=== PATIENT | male | born 1970 | race Caucasian/White ===

== ENCOUNTER 2023-02-28 14:47 | Inpatient (IN) | payer BC ==
[2023-02-28] MEDS ORDERED: IV FLUID CONTINUATION 1,000 ML IV ONE (15:11)
[2023-02-28] MEDS ORDERED: MORPHINE SULFATE 4 MG/ML SYRINGE IV PRN (15:16)
[2023-02-28] MEDS ORDERED: NALOXONE 0.4 MG/ML 1 ML VIAL IV PRN (15:16)
[2023-02-28 15:17] LABS: Partial Thromboplastin Time 24.2 sec (22.0-30.0); Prothrombin Time 10.5 sec (9.0-12.0)
[2023-02-28] MEDS ORDERED: HEPARIN SODIUM 1,000 UN/ML (10ML VL) ONE (15:18)
[2023-02-28] MEDS ORDERED: fentaNYL (PF) 50 MCG/ML 2 ML AMP ONE (15:18)
--- NOTE | 2023-02-28 15:21 | ED ---
General Adult HPI - General Chief complaint: Chest Pain Stated complaint: Chest Pain Time Seen by Provider: 02/28/23 14:53 Source: patient, RN notes reviewed, old records reviewed Mode of arrival: ambulatory Limitations: no limitations - History of Present Illness Initial comments: 52-year-old male presents with central chest pain. Pain was described initially as sharp followed by a pressure sensation. Patient has no prior history of CAD. He states he had mid back pain which began yesterday and was also sharp in nature. Patient was hypotensive by paramedics. He was given aspirin and nitroglycerin during transport with significant improvement in his symptoms. He had a anterior OH during transport on EKG but was not able to transmit the EKG secondary to the Internet being down. Patient is feeling better with continued chest pressure upon arrival. He has history of hypertension and is a prediabetic. He is a nonsmoker. - Related Data Allergies Allergy/AdvReac Type Severity Reaction Status Date / Time bupropion [From Wellbutrin] Allergy Unknown Verified 02/28/23 14:54 Review of Systems ROS Statement: Those systems with pertinent positive or pertinent negative responses have been documented in the HPI. ROS Other: All systems not noted in ROS Statement are negative. Past Medical History Past Medical History: Hypertension History of Any Multi-Drug Resistant Organisms: None Reported Past Surgical History: No Surgical Hx Reported Past Psychological History: No Psychological Hx Reported Smoking Status: Current every day smoker Past Alcohol Use History: None Reported Past Drug Use History: None Reported General Exam Limitations: no limitations General appearance: alert, in no apparent distress Head exam: Present: atraumatic, normocephalic Eye exam: Present: normal appearance, PERRL ENT exam: Present: normal exam Neck exam: Present: normal inspection. Absent: tenderness, meningismus Respiratory exam: Present: normal lung sounds bilaterally. Absent: respiratory distress, wheezes Cardiovascular Exam: Present: regular rate, normal rhythm GI/Abdominal exam: Present: soft. Absent: distended, tenderness Extremities exam: Present: normal inspection, other (2+ left radial pulse, 2+ bilateral pedal pulses) Neurological exam: Present: alert Psychiatric exam: Present: anxious Skin exam: Present: warm, diaphoretic Course Vital Signs 02/28/23 02/28/23 02/28/23 14:49 14:55 14:58 Temperature 98.1 F Pulse Rate 64 60 Respiratory 20 18 63 H Rate Blood Pressure 164/115 166/114 O2 Sat by Pulse 100 100 98 Oximetry - Reevaluation(s) Reevaluation #1: 02/28/23 15:08 Due to the fact that the patient was hypertensive with sharp chest pain and back pain he was taken immediately to CT angiography for aorta study prior to transport immediately to the Electromedical Equipment [facility]. This was decided with the discussion between myself and Dr. Herrera. She was taken from the computed tomography scan to the Electromedical Equipment Repairer. Medical Decision Making - Medical Decision Making Was pt. sent in by a medical professional or institution (, PA, TAPING SUPERVISOR, urgent care, hospital, or residential...) When possible be specific @ -No Did you speak to anyone other than the patient for history (EMS, parent, family, police, friend...)? What history was obtained from this source @ -No Did you review nursing and triage notes (agree or disagree)? Why? @ -I reviewed and agree with nursing and triage notes Were old charts reviewed (outside hosp., previous admission, EMS record, old EKG, old radiological studies, urgent care reports/EKG's, residential records)? Report findings @ -No old charts were reviewed Differential Diagnosis (chest pain, altered mental status, abdominal pain women, abdominal pain men, vaginal bleeding, weakness, fever, dyspnea, syncope, headache, dizziness, GI bleed, back pain, seizure, CVA, palpatations, mental health, musculoskeletal)? @ -not applicable EKG interpreted by me (3pts min.). @EKG shows sinus rhythm with elevation in V2 and V3 with reciprocal change in the inferior leads consistent with acute OH, rate of 63, KY interval 146, QRS duration 98, QTC 4:15. X-rays interpreted by me (1pt min.). @ -None done CT interpreted by me (1pt min.). @ -CT angiography was performed, I do not see and aortic dissection. Currently awaiting the radiologist's read U/S interpreted by me (1pt. min.). @ -None done What testing was considered but not performed or refused? (CT, X-rays, U/S, labs)? Why? @ -None What meds were considered but not given or refused? Why? @ -None Did you discuss the management of the patient with other professionals (professionals i.e. , PA, TAPING SUPERVISOR, lab, RT, psych nurse, social work supervisor, school services officer, teacher, community services officer, case therapist)? Give summary @ -[EMH Was smoking cessation discussed for >3mins.? @ -No Was critical care preformed (if so, how long)? @ -No Were there social determinants of health that impacted care today? How? (Homelessness, low income, unemployed, alcoholism, drug addiction, transportation, low edu. Level, literacy, decrease access to med. care, halfway, rehab)? @ -No Was there de-escalation of care discussed even if they declined (Discuss DNR or withdrawal of care, Hospice)? DNR status @ -No What co-morbidities impacted this encounter? (DM, HTN, Smoking, COPD, CAD, Cancer, CVA, ARF, Chemo, Hep., AIDS, mental health diagnosis, sleep apnea, morbid obesity)? @Hypertension Was patient admitted / discharged? Hospital course, mention meds given and route, prescriptions, significant lab abnormalities, going to OR and other pertinent info. @52 yo male presenting with chest pain. Patient has associated hypertension and stabbing back pain and there was concern for aortic pathology. He was taken first to the computed tomography scan for aorta study. I reviewed this myself and did not see any dissection or aneurysmal change. Patient was then taken to the Electromedical Equipment Repairer. All laboratory studies pending. He had been given aspirin and nitroglycerin prehospital. Case discussed with the admitting physician and with the bead maker Dr. Herrera. Undiagnosed new problem with uncertain prognosis? @ -No Drug Therapy requiring intensive monitoring for toxicity (Heparin, Nitro, Insulin, Cardizem)? @ -No Were any procedures done? @ -No Diagnosis/symptom? @ -Acute OH, ST segment elevated OH Acute, or Chronic, or Acute on Chronic? @ -Acute Uncomplicated (without systemic symptoms) or Complicated (systemic symptoms)? @Complicated Side effects of treatment? @ -No Exacerbation, Progression, or Severe Exacerbation? @ -No Poses a threat to life or bodily function? How? (Chest pain, USA, OH, pneumonia, PE, COPD, DKA, ARF, appy, cholecystitis, CVA, Diverticulitis, Homicidal, Carreon icidal, threat to staff... and all critical care pts) @ -Yes, arrhythmia, cardiogenic shock - Lab Data Result diagrams: 02/28/23 14:57 Lab Results 02/28/23 02/28/23 Range/Units 14:57 14:57 PT 10.5 (9.0-12.0) sec INR 1.0 (<1.2) APTT 24.2 (22.0-30.0) sec Sodium 139 (137-145) mmol/L Potassium 4.0 (3.5-5.1) mmol/L Chloride 109 H (98-107) mmol/L Carbon Dioxide 21 L (22-30) mmol/L Anion Gap 9 mmol/L BUN 24 H (9-20) mg/dL Creatinine 0.93 (0.66-1.25) mg/dL Est GFR (CKD-EPI)AfAm >90 (>60 ml/min/1.73 sqM) Est GFR (CKD-EPI)NonAf >90 (>60 ml/min/1.73 sqM) Glucose 130 H (74-99) mg/dL Calcium 9.1 (8.4-10.2) mg/dL Magnesium 1.9 (1.6-2.3) mg/dL Total Bilirubin 0.5 (0.2-1.3) mg/dL AST 26 (17-59) U/L ALT 20 (4-49) U/L Alkaline Phosphatase 95 (38-126) U/L Total Protein 7.0 (6.3-8.2) g/dL Albumin 4.0 (3.5-5.0) g/dL Disposition Clinical Impression: ST elevation myocardial infarction (STEMI) Disposition: ADMITTED IP TO THIS HOSP Condition: Serious Is patient prescribed a controlled substance at d/c from ED?: No Time of Disposition: 15:10
[2023-02-28] MEDS: HEPARIN SODIUM 1,000 UN/ML (10ML VL) IVP ONE ×2 (15:27→15:42)
[2023-02-28] MEDS ORDERED: MIDAZOLAM 2 MG/2 ML VIAL IVP ONE (15:27)
[2023-02-28] MEDS ORDERED: LIDOCAINE 1% INJ 10MG/ML (20 ML MDV) SQ ONE (15:28)
[2023-02-28 15:29] LABS: ALT 20 U/L (4-49); AST 26 U/L (17-59); African American GFR (CKD) >90 (>60 ml/min/1.73 sqM); Alkaline Phosphatase 95 U/L (38-126); Anion Gap 9 mmol/L; Blood Urea Nitrogen 24 mg/dL (9-20); Calcium 9.1 mg/dL (8.4-10.2); Carbon Dioxide 21 mmol/L (22-30); Chloride 109 mmol/L (98-107); Glucose 130 mg/dL (74-99); Magnesium 1.9 mg/dL (1.6-2.3); Non-African American GFR(CKD) >90 (>60 ml/min/1.73 sqM); Sodium 139 mmol/L (137-145); Total Bilirubin 0.5 mg/dL (0.2-1.3)
--- NOTE | 2023-02-28 15:29 | CT ---
EXAMINATION TYPE: CT angio thor/abd pel aorta CT DLP: 1080.8 mGycm, Automated exposure control for dose reduction was used. DATE OF EXAM: 02/28/2023 3:16 PM COMPARISON: None. CLINICAL INDICATION:Male, 52 years old with history of CP/BP/HTN; PHH, chest pain TECHNIQUE: Dissection protocol: Multiple axial CT images of the chest, abdomen, and pelvis were obtai maria dolores after the administration of IV contrast. 3-D reformats and maximum intensity projection format we re performed on a separate workstation. Then the abdomen was scanned after administration of 100 cc o f Isovue 370 IV contrast. 3-D reformats of the aorta were performed on a separate workstation. FINDINGS: ARTERIAL VASCULATURE: The thoracic aorta is normal in course. Ascending thoracic aortic aneurysm mariaelena uring up to 4.2 cm. There is no evidence of aortic dissection, aneurysm or acute aortic injury. Great arch vessels patent and normal in course and caliber. No abdominal aortic aneurysm. No evidence for dissection. The celiac axis, SMA, single bilateral renal arteries, and ARACELI are widely patent. PULMONARY ARTERIAL VASCULATURE: Normal caliber. No evidence of filling defect to suggest pulmonary em bolus. VENOUS SYSTEM: Unremarkable. Lungs/pleura: The lung parenchyma appears unremarkable. Heart: Within normal limits. Pericardial effusion. Mild coronary artery calcifications within the LAD and circumflex coronary arteries. Mediastinum: No gross evidence of adenopathy. Lower Neck: No significant findings. Abdomen: Liver: Unremarkable. Gallbladder and Bile ducts: Unremarkable. Pancreas: Unremarkable. Spleen: Unremarkable. Adrenal glands: Unremarkable. Kidneys and Ureters: Unremarkable. No hydronephrosis. Stomach and Bowel: Unremarkable. The appendix is within normal limits. No evidence of bowel obstruct ion. Peritoneum: No evidence of pneumoperitoneum, free fluid, or adenopathy. Bladder: Unremarkable. Reproductive: Unremarkable. Abdominal wall/soft tissues: Small fat filled umbilical hernia.. Musculoskeletal: The osseous structures appear intact. IMPRESSION: 1. No evidence for aortic dissection. 2. Ascending thoracic aortic aneurysm measuring up to 4.2 cm.
[2023-02-28 15:48] LABS: HCT 41.4 % (39.0-53.0); MCH 31.5 pg (25.0-35.0); MCHC 33.8 g/dL (31.0-37.0); MCV 93.1 fL (80.0-100.0); Mean Platelet Volume 7.3; Platelet Count 319 k/uL (150-450); RBC 4.44 m/uL (4.30-5.90); RDW 12.8 % (11.5-15.5); WBC 8.7 k/uL (3.8-10.6)
[2023-02-28] MEDS ORDERED: TICAGRELOR 90 MG TAB ONE (15:52)
[2023-02-28] MEDS ORDERED: TICAGRELOR 90 MG TAB PO ONE (16:00)
[2023-02-28] MEDS ORDERED: NITROGLYCERIN 1000MCG/10ML SYRINGE INTRACORON ONE (16:11)
[2023-02-28] MEDS ORDERED: IOPAMIDOL-370 100ML BTL INJ ONE ×3 (16:11→16:58)
[2023-02-28] MEDS ORDERED: HYDROmorphone 0.5 MG/0.5 ML SYRINGE IVP ONE (16:16)
[2023-02-28] MEDS ORDERED: TEMAZEPAM 15 MG CAP PO PRN (16:43)
[2023-02-28] MEDS ORDERED: SODIUM CHLORIDE 0.9% 1,000 ML IV SCH (16:45)
[2023-02-28 17:04] LABS: Glucose,Whole Blood 97 mg/dL (70-110)
[2023-02-28] MEDS ORDERED: MAG HYDROX/AL HYDROX/SIMETH 30 ML CUP PO PRN (17:14)
[2023-02-28] MEDS ORDERED: NITROGLYCERIN SL TABS 0.4 MG TAB SUBLINGUAL PRN (17:14)
[2023-02-28] MEDS ORDERED: RX INFO: IV CONTRAST WAS GIVEN 1 EACH MISC MISCELLANE PRN (17:14)
[2023-02-28] MEDS ORDERED: ATROPINE SULFATE 0.1 MG/ML 10ML SYRINGE IV PRN (17:14)
[2023-02-28] MEDS ORDERED: ZOLPIDEM 5 MG TAB PO PRN (17:14)
[2023-02-28 17:54] LABS: Basophils # (M) 0.09 k/uL (0-0.2); Eosinophils # (M) 0.09 k/uL (0-0.7); Lymphocytes # (M) 2.96 k/uL (1.0-4.8); Metamyelocytes # (M) 0.09 k/uL (0); Metamyelocytes % 1 %; Monocytes # (M) 0.61 k/uL (0-1.0); Neutrophils # (M) 4.96 k/uL (1.3-7.7); Neutrophils % (M) 57 %; Nucleated Red Blood Cells 0 /100 WBC (0-0); Total Cells Counted 200
[2023-02-28] MEDS: METOPROLOL TARTRATE 25 MG TAB PO SCH (18:03)
[2023-02-28] MEDS: ATORVASTATIN 80 MG TAB PO SCH (18:04)
[2023-02-28 19:49] LABS: T4, Free (Free Thyroxine) 1.66 ng/dL (0.78-2.19)
[2023-02-28] MEDS: LOSARTAN 50 MG TAB PO SCH (20:19)
[2023-02-28] MEDS ORDERED: DEXTROSE 50% SYRINGE 50 ML IVP PRN ×2 (22:44)
[2023-02-28 23:41] LABS: Glucose,Whole Blood 101 mg/dL (70-110)
--- NOTE | 2023-02-28 23:46 | CONS ---
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 today. He had mild back discomfort in the upper mid scapular area yesterday and also mild chest discomfort, which he did not think too much about, but this afternoon, the pain was more constant. After arrival, he was found to have a very subtle anterior ST elevation and also had quite a bit of elevated blood pressure and therefore, I recommended a CT angio prior to any coronary intervention and this CT angio did not reveal any evidence of dissection, but there was an ascending aortic dilatation of 4.2 cm. He was advised a prompt cardiac catheterization and I saw him in the cardiac lab support technician. He was having very mild chest discomfort and EKG changes had improved when I started the procedure. PAST MEDICAL HISTORY: 1. Family history of premature CAD. 2. Hypertension. 3. Hypothyroidism. 4. Borderline hyperlipidemia. 5. No evidence of any diabetes, myocardial infarction, CVA. SOCIAL HISTORY: The patient is not a smoker. MEDICATIONS: Medications at home include; 1. Ozempic 0.5 subcu once a week. 2. Losartan 100 mg daily. 3. Synthroid 224 mcg daily. 4. He takes Nexium. ALLERGIES: Wellbutrin. PHYSICAL EXAMINATION: VITAL SIGNS: Blood pressure is 140/70, pulse rate is about 92, sinus. HEENT: Unremarkable. Fundus was not examined by me. NECK: Supple. No JVD. No carotid bruit. HEART: Reveals S1, S2 heard normally. No significant murmurs. LUNGS: Clear. ABDOMEN: Soft, nontender. EXTREMITIES: Lower extremities reveal normal pulses. No edema. CENTRAL NERVOUS SYSTEM: Normal. IMAGING STUDIES: EKG revealed sinus mechanism with a precordial ST elevation in leads V1 and V2 with some reciprocal inferior ST depression suggestive of anterior ST-elevation OR. IMPRESSION: 1. Anterior ST-elevation myocardial infarction. 2. Hypertension. 3. Family history of coronary artery disease. 4. Hypothyroidism, on replacement therapy. RECOMMENDATIONS: Prompt cardiac cath and PCI advised and I proceeded to perform the procedure expeditiously. MMODL / IJN: [id number] /
[2023-03-01 05:45] LABS: HCT 38.1 % (39.0-53.0); HGB 12.4 gm/dL (13.0-17.5); MCH 30.8 pg (25.0-35.0); MCHC 32.6 g/dL (31.0-37.0); MCV 94.4 fL (80.0-100.0); Mean Platelet Volume 7.3; Platelet Count 267 k/uL (150-450); RBC 4.03 m/uL (4.30-5.90); RDW 12.8 % (11.5-15.5); WBC 8.2 k/uL (3.8-10.6)
[2023-03-01 05:50] LABS: Magnesium 2.1 mg/dL (1.6-2.3); Phosphorus 3.7 mg/dL (2.5-4.5)
[2023-03-01 05:51] LABS: ALT 23 U/L (4-49); AST 34 U/L (17-59); African American GFR (CKD) >90 (>60 ml/min/1.73 sqM); Albumin 3.3 g/dL (3.5-5.0); Alkaline Phosphatase 74 U/L (38-126); Anion Gap 7 mmol/L; Blood Urea Nitrogen 18 mg/dL (9-20); Calcium 8.7 mg/dL (8.4-10.2); Carbon Dioxide 22 mmol/L (22-30); Chloride 108 mmol/L (98-107); Glucose 85 mg/dL (74-99); Non-African American GFR(CKD) >90 (>60 ml/min/1.73 sqM); Potassium 4.2 mmol/L (3.5-5.1); Sodium 137 mmol/L (137-145); Total Bilirubin 0.6 mg/dL (0.2-1.3); Total Protein 6.2 g/dL (6.3-8.2)
--- NOTE | 2023-03-01 06:02 | CC ---
CARDIAC CATHETERIZATION REPORT PROCEDURES PERFORMED: 1. Left heart catheterization and coronary angiography. 2. Percutaneous transluminal coronary angioplasty and stenting of mid left anterior descending with a drug-eluting stent culprit vessel performed in the setting of an acute anterior ST-elevation myocardial infarction. 3. Percutaneous transluminal coronary angioplasty and stenting of mid circumflex nondominant vessel with a drug-eluting stent. PERFORMED BY: Dr. Ty Herrera. ANESTHESIA: Moderate conscious sedation time was 53 minutes. The patient was administered Versed. Oxygen saturation, hemodynamics, and EKG were monitored closely. Reperfusion of LAD was achieved in 60 minutes after arrival to the emergency room. The patient was administered heparin of about 7500 units and his ACT was 279. He also received aspirin and Brilinta 180 mg during the procedure and he was advised to be on aspirin and Brilinta combination of 81 mg and 90 mg b.i.d. uninterrupted for 1 year. CLINICAL INFORMATION: Mr. Yefri Barron is a 52-year-old gentleman presented to the hospital with chest pain and anterior ST elevation in leads V1 to V3. Advised prompt cardiac catheterization. He has history of hypertension, family history of CAD and also hypothyroidism. He has borderline hyperlipidemia. PROCEDURE NOTE: Under local anesthesia and strict aseptic precautions, a 6-Mohawk introducer was placed in the right radial artery. I started off with a left 3.5 Lydia guide catheter and did coronary angiography of the left system and also performed the stenting of mid LAD and mid circumflex. I then checked LV pressures and did a right coronary angiogram with a standard right Lydia catheter and noted that he had a significant lesion in the RCA, which would be staged. After the procedure, the sheath was taken out and TR band applied as per protocol and the patient sent to the room in a stable condition with saturation of fingers of the right hand of about 98%. CARDIAC CATHETERIZATION FINDINGS: 1. Left main coronary artery: There is no significant disease. Mild ostial narrowing, but no significant disease. Bifurcates into LAD and circumflex. 2. Left anterior descending coronary artery: Fair caliber vessel extends along the anterior wall. There is a mid lesion after a septal and diagonal branch and the lesion is about 90% to 95% with haziness eccentric suggestive of some thrombus. Beyond the lesion, the caliber improves, gives off another diagonal and several septal branches, runs all the way to the apex and curves over the apex to supply the inferoapical portion. The mid LAD therefore is a culprit lesion with haziness suggestive of thrombus and 95% stenosis. 3. Left posterior circumflex coronary artery: Nondominant vessel, gives off 2 small obtuse marginals and a groove branch that is diffusely diseased. After the groove branch, the circumflex continues and gives off another obtuse marginal and at this origin of the obtuse marginal, there is an 80% eccentric calcified stenosis and then the caliber improves, and distally it trifurcates into 3 small branches. The circumflex is nondominant, moderate caliber and distribution, mid lesion of 80% to 85% with calcification. 4. Right coronary artery: This coronary angiogram was performed at the end of the procedure and this is a dominant vessel, has a mid lesion of about 95% and distally there is some diffuse disease, but bifurcates into PDA and PLV, both of which have a 30% to 40% narrowing, but the mid lesion is significant and seems to be a chronic lesion with some calcification and is about 90%. 5. Left ventriculogram was not performed. FINAL IMPRESSION: This patient has a right-dominant system with a 90% mid RCA lesion and mild diffuse disease beyond it and then the distal branches. Normal filling pressures of about 14 mmHg without any gradient. Left main has mild ostial narrowing. No significant disease. LAD has a 95% mid lesion and circumflex has 85% mid lesion. LV-gram was not performed. RECOMMENDATIONS: I performed PCI of LAD and circumflex and will stage RCA. PCI PROCEDURE DETAILS: I used a 3.5 left 6-Mohawk Lydia guide catheter to cannulate left coronary artery. The aortic arch was very tortuous. A run-through wire was used to cross the lesion. A 2.5 caliber 12 mm Trek balloon was used to pre-dilate the mid lesion. I deployed a 3.5 caliber 15 mm long Xience stent with excellent angiographic result. I then turned my attention to the circumflex. Same wire was advanced into the circumflex and a 2.5 caliber 8 mm NC Trek balloon was used to pre-dilate the mid circumflex lesion, which was calcified. I then deployed a 3.5 caliber 12 mm Xience stent. Excellent angiographic result was achieved. The patient had chest pain and mild EKG changes with the LAD dilatation, but not so many EKG changes, but he had a lot of chest pain with circumflex lesion. Excellent angiographic result was achieved. The patient's ACT was 279. The sheath was taken out, and Angio-Seal device used to secure hemostasis. Results were discussed with the patient and I also spoke to his . Plan is to probably stage the mid RCA lesion in the next 2 weeks if he remains stable. The patient was sent to the ICU in a stable condition. He will be on aspirin and Brilinta combination without interruption for 1 year. MMODL / IJN: [id number] /
[2023-03-01 06:20] LABS: Glucose,Whole Blood 84 mg/dL (70-110)
[2023-03-01] MEDS: LEVOTHYROXINE 100 MCG TAB PO SCH (06:39)
[2023-03-01] MEDS: METOPROLOL TARTRATE 25 MG TAB PO SCH ×2 (06:50→17:40)
[2023-03-01] MEDS: INSULIN ASPART (NovoLOG) 100 UNIT/ML VIAL SQ SCH ×4 (07:12→20:34)
[2023-03-01 08:52] VITALS: BMI 33.7
[2023-03-01] MEDS ORDERED: NON FORMULARY DRUG (Finasteride [Finasteride] 1 MG Tablet) PO SCH (09:00)
[2023-03-01 09:24] LABS: Chol/HDL Ratio 4.67 Ratio; LDL Cholesterol,Calculated 94.1 mg/dL (0.0-131.0)
[2023-03-01] MEDS: TICAGRELOR 90 MG TAB PO SCH ×2 (09:55→20:40)
[2023-03-01] MEDS: ATORVASTATIN 80 MG TAB PO SCH (09:55)
[2023-03-01] MEDS: ASPIRIN 81 MG PO SCH (09:55)
[2023-03-01] MEDS: PARoxetine 20 MG TAB PO SCH (10:45)
[2023-03-01 11:37] LABS: Glucose,Whole Blood 97 mg/dL (70-110)
--- NOTE | 2023-03-01 11:59 | P.HPIM ---
History of Present Illness H&P Date: 02/28/23 Chief Complaint: Chest pain Patient is a 52-year-old male with a known history of hypertension, hypothyroidism, anxiety and BPH presents to ER with the complaints of chest kendra n. Patient states that he was at work at that time. Started having chest pain with pressure like sensation along with shortness of breath, dizziness and palpitations. Associated with nausea . Patient's colleagues called EMS and was brought to the hospital. Patient states that he did have mid back pain yesterday which was sharp in nature. Patient was hypotensive while en route to the hospital. He was given aspirin and nitroglycerin with significant improvement in symptoms. EKG Showed was noted to have anterior wall NM, STEMI team was activated. Patient states that he was having exertional dyspnea for the past couple weeks. Laboratory data showed sodium 139 potassium 4.0 chloride 109 bicarb is 21 BUN 24 and creatinine 0.93 and blood sugar 130. Troponin 0.029, TSH 5.6 and free T4 [address] thorax showed no evidence for aortic dissection. Ascending thoracic aortic aneurysm measuring up to 4.2 cm. Patient underwent cardiac catheterization and is status post stenting of mid LAD and mid circumflex with a drug-eluting stent. Planning for staged mid RCA PTCA in the next 2 weeks. Review of Systems Constitutional: Patient denies any fever or chills . No generalized weakness or weight loss. Abdomen: Patient denied nausea vomiting and diarrhea and abdominal pain. Cardiovascular: Patient currently denied chest pain or short of breath no palpitations. No leg swelling. Respiratory: patient denied any cough is from production. No shortness of breath Neurologic: Patient denied any numbness or tingling headache. Musculoskeletal: Patient denies any complaints of joint swelling or deformity. Skin: Negative Psychiatric: Negative Endocrine: No heat or cold intolerance. No recent weight gain. Genitourinary: No dysuria or hematuria. All other 14 point ROS negative except the above Past Medical History Past Medical History: Hypertension History of Any Multi-Drug Resistant Organisms: None Reported Past Surgical History: No Surgical Hx Reported Past Psychological History: No Psychological Hx Reported Smoking Status: Current every day smoker Past Alcohol Use History: None Reported Past Drug Use History: None Reported - Past Family History Father Family Medical History: Congestive Heart Failure (CHF) Medications and Allergies Home Medications Medication Instructions Recorded Confirmed Type Esomeprazole Magnesium [NexIUM] 40 mg PO DAILY PRN 02/28/23 02/28/23 History Finasteride 1 mg PO DAILY 02/28/23 02/28/23 History Levothyroxine Sodium [Synthroid] 224 mcg PO DAILY 02/28/23 02/28/23 History Losartan Potassium [Cozaar] 100 mg PO DAILY 02/28/23 02/28/23 History PARoxetine HCL [Paxil] 40 mg PO DAILY 02/28/23 02/28/23 History Semaglutide [Ozempic] 0.5 mg SQ [id number] 02/28/23 02/28/23 History Allergies Allergy/AdvReac Type Severity Reaction Status Date / Time bupropion [From Wellbutrin] Allergy Unknown Verified 02/28/23 15:49 Physical Exam Vitals: Vital Signs Temp Pulse Resp BP Pulse Ox 02/28/23 15:08 58 L 20 143/90 02/28/23 15:05 136/95 02/28/23 14:58 63 H 98 02/28/23 14:55 60 18 166/114 100 02/28/23 14:49 98.1 F 64 20 164/115 100 Intake and Output 02/28/23 02/28/23 02/28/23 06:59 14:59 22:59 Other: Weight 100.244 kg PHYSICAL EXAMINATION: Patient is lying in the bed comfortably, no acute distress, awake alert and oriented.. HEENT: Normocephalic. Neck is supple. Pupils reactive. Nostrils clear. Oral cavity is moist. Neck reveals no JVD, carotid bruits, or thyromegaly. CHEST EXAMINATION: Trachea is central. Symmetrical expansion. Lung collier clear to auscultation and percussion. CARDIAC: Normal S1, S2 with no gallops. No murmurs ABDOMEN: Soft. Bowel sounds normal. No organomegaly. No abdominal bruits. Extremities: reveal no edema. No clubbing or cyanosis Neurologically awake, alert, oriented x3 with well-coordinated movements. No focal deficits noted Skin: No rash or skin lesions. Psychiatric: Coperative. Nonsuicidal Musculoskeletal: No joint swelling or deformity. Normal range of motion. Results CBC & Chem 7: 03/01/23 05:17 03/01/23 05:17 Labs: Abnormal Lab Results - Last 24 Hours (Table) 02/28/23 Range/Units 14:57 Chloride 109 H (98-107) mmol/L Carbon Dioxide 21 L (22-30) mmol/L BUN 24 H (9-20) mg/dL Glucose 130 H (74-99) mg/dL Thrombosis Risk Factor Assmnt - DVT/VTE Prophylaxis DVT/VTE Prophylaxis: Pharmacologic Prophylaxis ordered Assessment and Plan Assessment: Acute anterior wall ST elevated NM. Status post stent placement to mid circumflex and mid LAD. Ascending thoracic aortic aneurysm measuring up to 4.2 cm Hypertension Prediabetes Hypothyroidism Anxiety/depression Family history of coronary disease in his uncles DVT prophylaxis with heparin subcu Plan: Patient is status post cardiac catheterization and stent placement. Continue with aspirin, Divya and statins. Patient was also started on metoprolol and losartan. Continue with levothyroxine. Patient is being monitored in the MICU. Cardiology is planning for a staged PTCA for the mid RCA lesion. Continue to follow closely. Cardiology is on board. Time with Patient: Greater than 30
--- NOTE | 2023-03-01 13:09 | CA ---
Transthoracic Echo Report Name: Yefri Barron Age: 52 Gender: M : 1970 Exam Date: 03/01/2023 07:49 Exam Location: [facility] Ht (in): 69 Wt (lb): 221 Ordering Physician: Annie Herrera MD ([id number]) Attending/Referring Phys: Entry Level Mechanical Engineer Maral Burgess RDCS Procedure CPT: Indications: anterior stemi Cardiac Hx: stents Technical Quality: Good Contrast 1: Total Dose (mL): Contrast 2: Total Dose (mL): MEASUREMENTS (Male / Female) Normal Values 2D ECHO LV Diastolic Diameter PLAX 4.4 cm 4.2 - 5.9 / 3.9 - 5.3 cm LV Systolic Diameter PLAX 2.8 cm IVS Diastolic Thickness 1.4 cm 0.6 - 1.0 / 0.6 - 0.9 cm LVPW Diastolic Thickness 1.5 cm 0.6 - 1.0 / 0.6 - 0.9 cm LV Relative Wall Thickness 0.6 RV Internal Dim ED PLAX 3.2 cm LA Systolic Diameter LX 3.6 cm 3.0 - 4.0 / 2.7 - 3.8 cm LV Diastolic Volume MOD 4C 130.9 cm??? LV Systolic Volume MOD 4C 68.6 cm??? LV Ejection Fraction MOD 4C 47.6 % LV Cardiac Index MOD 4C 1888.1 cm???/min???m??? LV Diastolic Length 4C 9.5 cm LV Systolic Length 4C 8.0 cm LV Diastolic Volume MOD 2C 100.1 cm??? LV Systolic Volume MOD 2C 42.1 cm??? LV Ejection Fraction MOD 2C 58.0 % LV Cardiac Index MOD 2C 1760.8 cm???/min???m??? LV Diastolic Length 2C 8.8 cm LV Systolic Length 2C 7.6 cm LA Volume 60.7 cm??? 18 - 58 / 22 - 52 cm??? M-MODE Aortic Root Diameter MM 3.4 cm MV E Point Septal Separation 0.8 cm AV Cusp Separation MM 2.2 cm DOPPLER AV Peak Velocity 143.5 cm/s AV Peak Gradient 8.2 mmHg MV Area PHT 4.2 cm??? Mitral E Point Velocity 94.2 cm/s Mitral A Point Velocity 95.7 cm/s Mitral E to A Ratio 1.0 MV Deceleration Time 181.1 ms MV E' Velocity 5.7 cm/s Mitral E to MV E' Ratio 16.5 TR Peak Velocity 244.5 cm/s TR Peak Gradient 23.9 mmHg Right Ventricular Systolic Press 28.9 mmHg FINDINGS Left Ventricle Left ventricular ejection fraction is estimated at 40-45 %. Left ventricular cavity size normal. Mildly increased septal wall thickness. Anteroapical, anteroseptal and anterolateral hypokinesis Right Ventricle Normal right ventricular size. Right ventricular systolic pressure within normal limits. Right Atrium Normal right atrial size. Left Atrium Mildly increased left atrial volume. Mildly increased left atrial area. Mitral Valve Structurally normal mitral valve. Mild mitral regurgitation. Aortic Valve Trileaflet aortic valve. No aortic valve stenosis or regurgitation. Tricuspid Valve Structurally normal tricuspid valve. Mild tricuspid regurgitation. Pulmonic Valve Structurally normal pulmonic valve. No pulmonic regurgitation. Pericardium No pericardial effusion. Aorta Normal size aortic root and proximal ascending aorta. CONCLUSIONS 1. Normal left ventricle size with mildly impaired left ventricle systolic function with segmental wall motion abnormality 2. Mild mitral and tricuspid regurgitation Previewed by: Dr. Diana Holland MD (Electronically Signed) Final Date: 01 March 2023 13:08
[2023-03-01 16:20] LABS: Glucose,Whole Blood 110 mg/dL (70-110)
[2023-03-01 20:20] LABS: Glucose,Whole Blood 97 mg/dL (70-110)
[2023-03-01] MEDS: LOSARTAN 50 MG TAB PO SCH (20:40)
--- NOTE | 2023-03-02 04:39 | PN ---
PROGRESS NOTE This is a gentleman who presented with acute anterior ST-elevation [place] and I performed stenting of mid LAD and also mid circumflex. He has a RCA lesion as well. His EKG today revealed sinus mechanism with poor R-wave progression. No acute changes. He is asymptomatic, doing well. Right radial site is clean and dry. Vital signs are stable. S1, S2 heard normally. Lungs are clear. Abdomen and lower extremities exam unchanged. Plan is to increase activity. Echocardiogram today and move him to telemetry tomorrow and possible discharge. I will perform intervention of mid circumflex in 2 weeks. If the patient has any symptoms while he is ambulating, I will consider intervention on this hospitalization, but I opened up the LAD and circumflex yesterday. Discussed my thoughts in detail with the patient, increased activity and moved to telemetry today. His troponins are only modestly elevated. Echo will be reviewed. WARD / IJN: [id number] /
[2023-03-02] MEDS: METOPROLOL TARTRATE 25 MG TAB PO SCH ×2 (05:41→17:15)
[2023-03-02] MEDS: LEVOTHYROXINE 100 MCG TAB PO SCH (05:41)
[2023-03-02 06:03] LABS: Basophils % (A) 1 %; Eosinophils # (A) 0.2 k/uL (0-0.7); Eosinophils % (A) 2 %; HCT 42.2 % (39.0-53.0); Lymphocytes % (A) 24 %; MCH 30.9 pg (25.0-35.0); MCHC 33.2 g/dL (31.0-37.0); Mean Platelet Volume 6.9; Monocytes # (A) 0.6 k/uL (0-1.0); Monocytes % (A) 8 %; Neutrophils # (A) 5.3 k/uL (1.3-7.7); Neutrophils % (A) 63 %; Platelet Count 305 k/uL (150-450); RBC 4.53 m/uL (4.30-5.90); RDW 12.7 % (11.5-15.5); WBC 8.4 k/uL (3.8-10.6)
[2023-03-02 06:12] LABS: African American GFR (CKD) >90 (>60 ml/min/1.73 sqM); Anion Gap 7 mmol/L; Blood Urea Nitrogen 15 mg/dL (9-20); Calcium 8.9 mg/dL (8.4-10.2); Carbon Dioxide 25 mmol/L (22-30); Chloride 106 mmol/L (98-107); Glucose 90 mg/dL (74-99); Non-African American GFR(CKD) >90 (>60 ml/min/1.73 sqM); Potassium 4.3 mmol/L (3.5-5.1); Sodium 138 mmol/L (137-145)
[2023-03-02 06:44] LABS: Glucose,Whole Blood 100 mg/dL (70-110)
[2023-03-02] MEDS: INSULIN ASPART (NovoLOG) 100 UNIT/ML VIAL SQ SCH ×4 (06:45→20:03)
[2023-03-02] MEDS ORDERED: LOSARTAN 50 MG TAB PO STA (08:00)
[2023-03-02] MEDS: ASPIRIN 81 MG PO SCH (08:06)
[2023-03-02] MEDS: PARoxetine 20 MG TAB PO SCH (08:06)
[2023-03-02] MEDS: TICAGRELOR 90 MG TAB PO SCH ×2 (08:06→20:05)
[2023-03-02] MEDS: ATORVASTATIN 80 MG TAB PO SCH (08:06)
[2023-03-02 11:11] LABS: Glucose,Whole Blood 108 mg/dL (70-110)
[2023-03-02 11:57] LABS: Glucose,Whole Blood 84 mg/dL (70-110)
--- NOTE | 2023-03-02 13:01 | PN ---
PROGRESS NOTE SUBJECTIVE: This is a 52-year-old gentleman, who presented in the afternoon on Tuesday, February 28 with an acute anterior WA. He underwent stenting of LAD and circumflex. He has an RCA lesion, which is stable, chronic, significant. He also has hypertension and hypothyroidism. He is doing well. No anginal symptoms. Cath site in the right radial is clean and dry with a good pulse. We will increase activity. I will increase the losartan to 100 mg daily, move him to telemetry with increased activity at discharge tomorrow and I will see him in the office in 10-12 days. OBJECTIVE: VITAL SIGNS: Stable. NECK: No JVD. HEART: S1, S2 heard normally. LUNGS: Clear. ABDOMEN: Unremarkable. LOWER EXTREMITIES: Unremarkable. MMODL / IJN: [id number] /
[2023-03-02 20:00] LABS: Glucose,Whole Blood 111 mg/dL (70-110)
[2023-03-02] MEDS ORDERED: LOSARTAN 50 MG TAB PO SCH (21:00)
[2023-03-03 06:09] LABS: Glucose,Whole Blood 94 mg/dL (70-110)
[2023-03-03] MEDS: INSULIN ASPART (NovoLOG) 100 UNIT/ML VIAL SQ SCH ×2 (06:10→12:08)
[2023-03-03] MEDS: LEVOTHYROXINE 100 MCG TAB PO SCH (06:12)
[2023-03-03] MEDS: METOPROLOL TARTRATE 25 MG TAB PO SCH (06:12)
[2023-03-03] MEDS: ASPIRIN 81 MG PO SCH (08:04)
[2023-03-03] MEDS: TICAGRELOR 90 MG TAB PO SCH (08:04)
[2023-03-03] MEDS: ATORVASTATIN 80 MG TAB PO SCH (08:04)
[2023-03-03] MEDS: PARoxetine 20 MG TAB PO SCH (08:04)
--- NOTE | 2023-03-03 09:16 | P.PN ---
Subjective Progress Note Date: 03/01/23 Patient is a 52-year-old male with a known history of hypertension, hypothyroidism, anxiety and BPH presents to ER with the complaints of chest pain. Patient states that he was at work at that time. Started having chest pain with pressure like sensation along with shortness of breath, dizziness and palpitations. Associated with nausea . Patient's colleagues called EMS and was brought to the hospital. Patient states that he did have mid back pain yesterday which was sharp in nature. Patient was hypotensive while en route to the hospital. He was given aspirin and nitroglycerin with significant improvement in symptoms. EKG Showed was noted to have anterior wall TN, STEMI team was activated. Patient states that he was having exertional dyspnea for the past couple weeks. Laboratory data showed sodium 139 potassium 4.0 chloride 109 bicarb is 21 BUN 24 and creatinine 0.93 and blood sugar 130. Troponin 0.029, TSH 5.6 and free T4 [address] thorax showed no evidence for aortic dissection. Ascending thoracic aortic aneurysm measuring up to 4.2 cm. Patient underwent cardiac catheterization and is status post stenting of mid LAD and mid circumflex with a drug-eluting stent. Planning for staged mid RCA PTCA in the next 2 weeks. 03/01/2023 Patient is currently sitting in the recliner chair. No complaints of chest pain. No commerce or shortness of breath. Blood pressure is slightly elevated. Pain is being continued on metoprolol and losartan. Also on dual at lipid agents. Cardiology is on board. Laboratory data showed WBC 8.2 hemoglobin 12.4 and platelets 267, sodium 137 potassium 4.2 chloride 100 bicarb is 22 BUN 18 and creatinine 0.76 Current medications reviewed. Objective - Vital Signs Vital signs: Vital Signs Temp 98.4 F 03/01/23 08:00 Pulse 77 03/01/23 11:00 Resp 12 03/01/23 11:00 BP 127/96 03/01/23 11:00 Pulse Ox 96 03/01/23 11:00 FiO2 Intake & Output 02/28/23 03/01/23 03/01/23 18:59 06:59 18:59 Intake Total 1250 1050 350 Output Total 625 950 550 Balance 625 100 -200 Weight 100.244 kg 103.8 kg 103.8 kg Intake: IV 850 Intake, IV Titration 150 900 0 Amount Sodium Chloride 0.9% 1, 150 900 0 000 ml @ 75 mls/hr IV . [id number] BRANDEN Rx#:[id number] Oral 250 150 350 Output: Urine 625 950 550 Other: # Voids 1 - Exam PHYSICAL EXAMINATION: Patient is lying in the bed comfortably, no acute distress, awake alert and oriented.. HEENT: Normocephalic. Neck is supple. Pupils reactive. Nostrils clear. Oral cavity is moist. Neck reveals no JVD, carotid bruits, or thyromegaly. CHEST EXAMINATION: Trachea is central. Symmetrical expansion. Lung collier clear to auscultation and percussion. CARDIAC: Normal S1, S2 with no gallops. No murmurs ABDOMEN: Soft. Bowel sounds normal. No organomegaly. No abdominal bruits. Extremities: reveal no edema. No clubbing or cyanosis Neurologically awake, alert, oriented x3 with well-coordinated movements. No focal deficits noted Skin: No rash or skin lesions. Psychiatric: Coperative. Nonsuicidal Musculoskeletal: No joint swelling or deformity. Normal range of motion. - Labs CBC & Chem 7: 03/02/23 05:22 03/02/23 05:22 Labs: Abnormal Lab Results - Last 24 Hours (Table) 02/28/23 02/28/23 02/28/23 Range/Units 14:57 14:57 14:57 RBC (4.30-5.90) m/uL Hgb (13.0-17.5) gm/dL Hct (39.0-53.0) % Metamyelocytes # (Man) 0.09 H (0) k/uL Chloride 109 H (98-107) mmol/L Carbon Dioxide 21 L (22-30) mmol/L BUN 24 H (9-20) mg/dL Glucose 130 H (74-99) mg/dL Troponin I (0.000-0.034) ng/mL Total Protein (6.3-8.2) g/dL Albumin (3.5-5.0) g/dL HDL Cholesterol (40.00-60.00) mg/dL TSH 5.600 H (0.465-4.680) mIU/L 03/01/23 03/01/23 03/01/23 Range/Units 05:17 05:17 05:17 RBC 4.03 L (4.30-5.90) m/uL Hgb 12.4 L (13.0-17.5) gm/dL Hct 38.1 L (39.0-53.0) % Metamyelocytes # (Man) (0) k/uL Chloride 108 H (98-107) mmol/L Carbon Dioxide (22-30) mmol/L BUN (9-20) mg/dL Glucose (74-99) mg/dL Troponin I (0.000-0.034) ng/mL Total Protein 6.2 L (6.3-8.2) g/dL Albumin 3.3 L (3.5-5.0) g/dL HDL Cholesterol 32.10 L (40.00-60.00) mg/dL TSH (0.465-4.680) mIU/L 03/01/23 Range/Units 05:17 RBC (4.30-5.90) m/uL Hgb (13.0-17.5) gm/dL Hct (39.0-53.0) % Metamyelocytes # (Man) (0) k/uL Chloride (98-107) mmol/L Carbon Dioxide (22-30) mmol/L BUN (9-20) mg/dL Glucose (74-99) mg/dL Troponin I 1.660 H* (0.000-0.034) ng/mL Total Protein (6.3-8.2) g/dL Albumin (3.5-5.0) g/dL HDL Cholesterol (40.00-60.00) mg/dL TSH (0.465-4.680) mIU/L Assessment and Plan Assessment: Acute anterior wall ST elevated TN. Status post stent placement to mid circumflex and mid LAD. Ascending thoracic aortic aneurysm measuring up to 4.2 cm Hypertension Prediabetes Hypothyroidism Anxiety/depression Family history of coronary disease in his uncles DVT prophylaxis with heparin subcu Plan: Patient is status post cardiac catheterization and stent placement. Continue with aspirin, Divya and statins. Continue with metoprolol and losartan. Continue with levothyroxine. Patient is being monitored in the MICU. Cardiology is planning for a staged PTCA for the mid RCA lesion in the next 2 weeks.. Continue to follow closely. Cardiology is on board.
--- NOTE | 2023-03-03 10:10 | P.PN ---
Subjective Progress Note Date: 03/02/23 Patient is a 52-year-old male with a known history of hypertension, hypothyroidism, anxiety and BPH presents to ER with the complaints of chest pain. Patient states that he was at work at that time. Started having chest pain with pressure like sensation along with shortness of breath, dizziness and palpitations. Associated with nausea . Patient's colleagues called EMS and was brought to the hospital. Patient states that he did have mid back pain yesterday which was sharp in nature. Patient was hypotensive while en route to the hospital. He was given aspirin and nitroglycerin with significant improvement in symptoms. EKG Showed was noted to have anterior wall MD, STEMI team was activated. Patient states that he was having exertional dyspnea for the past couple weeks. Laboratory data showed sodium 139 potassium 4.0 chloride 109 bicarb is 21 BUN 24 and creatinine 0.93 and blood sugar 130. Troponin 0.029, TSH 5.6 and free T4 [address] thorax showed no evidence for aortic dissection. Ascending thoracic aortic aneurysm measuring up to 4.2 cm. Patient underwent cardiac catheterization and is status post stenting of mid LAD and mid circumflex with a drug-eluting stent. Planning for staged mid RCA PTCA in the next 2 weeks. 03/01/2023 Patient is currently sitting in the recliner chair. No complaints of chest pain. No commerce or shortness of breath. Blood pressure is slightly elevated. Pain is being continued on metoprolol and losartan. Also on dual at lipid agents. Cardiology is on board. Laboratory data showed WBC 8.2 hemoglobin 12.4 and platelets 267, sodium 137 potassium 4.2 chloride 100 bicarb is 22 BUN 18 and creatinine 0.76 03/02/2023 Patient is currently sitting in a chair. Awake alert and oriented 3. Currently improvement. No complains of chest pain or shortness of breath. No nausea vomiting abdominal pain or diarrhea. Patient hasn't bled. 2-D echo cardiogram showed normal left ventricular size and mildly impaired left 20/systolic function with segmental wall motion abnormality. Mild mitral and tricuspid regurgitation. Losartan was increased 100 mg daily for better blood pressure control. Current medications reviewed. Objective - Vital Signs Vital signs: Vital Signs Temp 98.2 F 03/02/23 16:00 Pulse 96 03/02/23 19:00 Resp 21 03/02/23 19:00 BP 134/94 03/02/23 19:00 Pulse Ox 96 03/02/23 18:00 FiO2 Intake & Output 03/02/23 03/02/23 03/03/23 06:59 18:59 06:59 Intake Total 0 450 100 Output Total 0 Balance 0 450 100 Weight 100 kg Intake: Intake, IV Titration 0 Amount Sodium Chloride 0.9% 1, 0 000 ml @ 75 mls/hr IV . [id number] BRANDEN Rx#:[id number] Oral 0 450 100 Output: Urine 0 Other: # Voids 1 1 # Bowel Movements 1 - Labs CBC & Chem 7: 03/02/23 05:22 03/02/23 05:22 Labs: Abnormal Lab Results - Last 24 Hours (Table) 03/02/23 Range/Units 19:59 POC Glucose (mg/dL) 111 H (70-110) mg/dL Assessment and Plan Assessment: Acute anterior wall ST elevated MD. Status post stent placement to mid circumflex and mid LAD. Ascending thoracic aortic aneurysm measuring up to 4.2 cm Hypertension Prediabetes Hypothyroidism Anxiety/depression Family history of coronary disease in his uncles DVT prophylaxis with heparin subcu Plan: Patient is status post cardiac catheterization and stent placement. Continue with aspirin, Bellinta and statins. Continue with metoprolol and losartan. Losartan dose increased to 100 mg daily. Continue with levothyroxine. Continue with insulin sliding scale Patient is being monitored in the MICU. Cardiology is planning for a staged PTCA for the mid RCA lesion in the next 2 weeks.. Continue to follow closely. Cardiology is on board.
[2023-03-03 11:23] LABS: Glucose,Whole Blood 96 mg/dL (70-110)
[2023-03-03 15:44] VITALS: BP 140/92; PULSE 67; RESP 16; TEMP 97.9
--- NOTE | 2023-03-03 17:01 | P.PN ---
Subjective Progress Note Date: 03/03/23 Subjective: Patient is doing well from cardiovascular standpoint. He denies having any chest pain or chest pressure or shortness of breath. He is hemodynamically stable. His labs are within normal limits. Physical examination Cardiovascular: Regular rate and rhythm, no murmurs Respiratory: Good air entry in bilateral lung collier GI: Abdomen is soft and nontender, normal bowel sounds Extremities: No swelling in lower extremities Neurological: Alert and oriented to time place and person, no focal deficit Assessment Acute anterior wall ST elevated CA. Status post stent placement to mid circumflex and mid LAD. Ascending thoracic aortic aneurysm measuring up to 4.2 cm Hypertension Prediabetes Hypothyroidism Anxiety/depression Family history of coronary disease in his uncles Plan: His right radial access site has healed well. He has good pulses in all 4 extremities. His cardiac examination is within normal limits. Continue aspirin and Zantac. Continue other cardiac medications without any changes Patient is okay to discharge from cardiovascular standpoint without patient follow-up with Dr. Herrera. Patient needs further staged PCI for residue disease. Objective - Vital Signs Vital signs: Vital Signs Temp 97.9 F 03/03/23 12:00 Pulse 67 03/03/23 12:00 Resp 16 03/03/23 12:00 BP 140/92 03/03/23 12:00 Pulse Ox 97 03/03/23 12:00 FiO2 Intake & Output 03/02/23 03/03/23 03/03/23 18:59 06:59 18:59 Intake Total 450 100 118 Balance 450 100 118 Weight 98.8 kg Intake: Oral 450 100 118 Other: # Voids 1 2 # Bowel Movements 2 - Labs CBC & Chem 7: 03/02/23 05:22 03/02/23 05:22 Labs: Abnormal Lab Results - Last 24 Hours (Table) 03/02/23 Range/Units 19:59 POC Glucose (mg/dL) 111 H (70-110) mg/dL
--- NOTE | 2023-03-24 00:16 | P.DS ---
Providers Date of admission: 02/28/23 15:16 Expected date of discharge: 03/03/23 Attending physician: Huy Dallas Consults: 02/28/23 15:16 Consult Physician Stat Consulting Provider: Annie Herrera Consult Reason/Comments: STEMI Do you want consulting provider notified?: Yes 02/28/23 17:14 Consult Physician Routine Consulting Provider: [facility] Consult Reason/Comments: Post Interventional Patient Do you want consulting provider notified?: Already Contacted Primary care physician: Stated None Hospital Course: Discharge diagnosis Acute anterior wall ST elevated OR. Status post stent placement to mid circumflex and mid LAD. Ascending thoracic aortic aneurysm measuring up to 4.2 cm Hypertension Prediabetes Hypothyroidism Anxiety/depression Family history of coronary disease in his uncles DVT prophylaxis with heparin subcu Hospital course Patient is a 52-year-old male with a known history of hypertension, hypothyroidism, anxiety and BPH presents to ER with the complaints of chest pain. Patient states that he was at work at that time. Started having chest pain with pressure like sensation along with shortness of breath, dizziness and palpitations. Associated with nausea . Patient's colleagues called EMS and was brought to the hospital. Patient states that he did have mid back pain yesterday which was sharp in nature. Patient was hypotensive while en route to the hospital. He was given aspirin and nitroglycerin with significant improvement in symptoms. EKG Showed was noted to have anterior wall OR, STEMI team was activated. Patient states that he was having exertional dyspnea for the past couple weeks. Laboratory data showed sodium 139 potassium 4.0 chloride 109 bicarb is 21 BUN 24 and creatinine 0.93 and blood sugar 130. Troponin 0.029, TSH 5.6 and free T4 [address] thorax showed no evidence for aortic dissection. Ascending thoracic aortic aneurysm measuring up to 4.2 cm. Patient underwent cardiac catheterization and is status post stenting of mid LAD and mid circumflex with a drug-eluting stent. Planning for staged mid RCA PTCA in the next 2 weeks. 03/01/2023 Patient is currently sitting in the recliner chair. No complaints of chest pain. No commerce or shortness of breath. Blood pressure is slightly elevated. Pain is being continued on metoprolol and losartan. Also on dual at lipid agents. Cardiology is on board. Laboratory data showed WBC 8.2 hemoglobin 12.4 and platelets 267, sodium 137 potassium 4.2 chloride 100 bicarb is 22 BUN 18 and creatinine 0.76 03/02/2023 Patient is currently sitting in a chair. Awake alert and oriented 3. Currently improvement. No complains of chest pain or shortness of breath. No nausea vomiting abdominal pain or diarrhea. Patient hasn't bled. 2-D echo cardiogram showed normal left ventricular size and mildly impaired left 20/systolic function with segmental wall motion abnormality. Mild mitral and tricuspid regurgitation. Losartan was increased 100 mg daily for better blood pressure control. 03/03/2023 Patient is currently resting in the bed. Awake alert and oriented x3. Hemodynamically stable. No acute overnight issues. Patient will be continued on current cardiac medications and medication reconciliation was prescriptions were sent to pharmacy. Patient is cleared from cardiology standpoint. Laboratory data reviewed. Recommend to follow-up with primary care physician and cardiology in the next 1 week. PHYSICAL EXAMINATION: Patient is lying in the bed comfortably, no acute distress, awake alert and oriented.. HEENT: Normocephalic. Neck is supple. Pupils reactive. Nostrils clear. Oral cavity is moist. Neck reveals no JVD, carotid bruits, or thyromegaly. CHEST EXAMINATION: Trachea is central. Symmetrical expansion. Lung collier clear to auscultation and percussion. CARDIAC: Normal S1, S2 with no gallops. No murmurs ABDOMEN: Soft. Bowel sounds present. Nontender. No organomegaly. No abdominal bruits. Extremities: reveal no edema. No clubbing or cyanosis Neurologically awake, alert, oriented x3 with well-coordinated movements. No focal deficits noted Skin: No rash or skin lesions. Psychiatric: Coperative. Nonsuicidal, Musculoskeletal: No joint swelling or deformity. Normal range of motion. Vital signs: Vital Signs Temp 97.9 F 03/03/23 12:00 Pulse 67 03/03/23 12:00 Resp 16 03/03/23 12:00 BP 140/92 03/03/23 12:00 Pulse Ox 97 03/03/23 12:00 FiO2 Intake & Output 03/02/23 03/03/23 03/03/23 18:59 06:59 18:59 Intake Total 450 100 118 Balance 450 100 118 Weight 98.8 kg Intake: Oral 450 100 118 Other: # Voids 1 2 # Bowel Movements 2 Patient Condition at Discharge: Stable Plan - Discharge Summary Discharge Rx Participant: No New Discharge Prescriptions: New Atorvastatin [Lipitor] 80 mg PO DAILY #30 tab Aspirin 81 mg PO DAILY #30 tab Ticagrelor [Brilinta] 90 mg PO BID #60 tab Metoprolol Tartrate [Lopressor] 25 mg PO BID@0600,1800 #60 tab Nitroglycerin Sl Tabs [Nitrostat] 0.4 mg SUBLINGUAL Q5M PRN #30 tab PRN Reason: Chest Pain Continue Esomeprazole Magnesium [NexIUM] 40 mg PO DAILY PRN PRN Reason: Gi Upset Levothyroxine Sodium [Synthroid] 224 mcg PO DAILY Finasteride 1 mg PO DAILY PARoxetine HCL [Paxil] 40 mg PO DAILY Discontinued Losartan Potassium [Cozaar] 100 mg PO DAILY No Action Losartan/Hydrochlorothiazide [Losartan-Hctz 100-25 mg Tab] 1 tab PO DAILY Discharge Medication List Esomeprazole Magnesium [NexIUM] 40 mg PO DAILY PRN 02/28/23 [History] Finasteride 1 mg PO DAILY 02/28/23 [History] Levothyroxine Sodium [Synthroid] 224 mcg PO DAILY 02/28/23 [History] PARoxetine HCL [Paxil] 40 mg PO DAILY 02/28/23 [History] Aspirin 81 mg PO DAILY #30 tab 03/03/23 [Rx] Atorvastatin [Lipitor] 80 mg PO DAILY #30 tab 03/03/23 [Rx] Metoprolol Tartrate [Lopressor] 25 mg PO BID@0600,1800 #60 tab 03/03/23 [Rx] Nitroglycerin Sl Tabs [Nitrostat] 0.4 mg SUBLINGUAL Q5M PRN #30 tab 03/03/23 [Rx] Ticagrelor [Brilinta] 90 mg PO BID #60 tab 03/03/23 [Rx] Losartan/Hydrochlorothiazide [Losartan-Hctz 100-25 mg Tab] 1 tab PO DAILY 03/17/23 [History] Follow up Appointment(s)/Referral(s): Annie Herrera MD [STAFF PHYSICIAN] - 1 Week (please call and schedule appt tell them you were discharged from [facility] 03/03 for a STEMI. ) None,Stated [Primary Care Provider] - 1-2 days Patient Instructions/Handouts: Heart Attack (DC) Activity/Diet/Wound Care/Special Instructions: find primary care doctor to follow with and set up follow up. Discharge/Stand Alone Forms: [facility] PCPs Discharge Disposition: HOME SELF-CARE
== END 2023-03-03 13:28 | disposition home or self-care (01) | DRG 247 ==
LOC: CATHCVL 14:47 → 2SICU 15:16
PROVIDERS: ADMIT Internal Medicine; ATTEND Internal Medicine
PROC: 027135Z Dilation of Coronary Artery, Two Arteries with Two Drug-eluting Intraluminal Devices, Percutaneous Approach (ICD-10-PCS; principal; 2023-02-28 14:20)
PROC: 4A023N7 Measurement of Cardiac Sampling and Pressure, Left Heart, Percutaneous Approach (ICD-10-PCS; 2023-02-28 14:20)
PROC: B2111ZZ Fluoroscopy of Multiple Coronary Arteries using Low Osmolar Contrast (ICD-10-PCS; 2023-02-28 14:20)
DX: I21.09 ST elevation (STEMI) myocardial infarction involving other coronary artery of anterior wall (principal); I71.20 Thoracic aortic aneurysm, without rupture, unspecified; I10 Essential (primary) hypertension; E03.9 Hypothyroidism, unspecified; F32.A Depression, unspecified; I08.1 Rheumatic disorders of both mitral and tricuspid valves; R73.03 Prediabetes; F41.9 Anxiety disorder, unspecified; F17.210 Nicotine dependence, cigarettes, uncomplicated; E78.5 Hyperlipidemia, unspecified; I25.10 Atherosclerotic heart disease of native coronary artery without angina pectoris; N40.0 Benign prostatic hyperplasia without lower urinary tract symptoms; Z79.890 Hormone replacement therapy; Z79.899 Other long term (current) drug therapy; Z79.85 Long-term (current) use of injectable non-insulin antidiabetic drugs; Z88.8 Allergy status to other drugs, medicaments and biological substances; Z82.49 Family history of ischemic heart disease and other diseases of the circulatory system
CPT/HCPCS: 71275; 74174; 80048; 80053; 80061; 83036; 83735; 84100; 84439; 84443; 84484; 85025; 85027; 85610; 85730; 93005; 93306; 93458; 94760; 99285

== ENCOUNTER → 2023-03-21 | Outpatient (CLI) | payer BC ==
[2023-03-21 16:25] LABS: Carbon Dioxide 29.3 mmol/L (21.6-31.8); Chloride 102 mmol/L (96-109); Potassium 4.9 mmol/L (3.5-5.5); Sodium 141 mmol/L (135-145)
[2023-03-21 17:13] LABS: HCT 44.7 % (39.6-50.0); HGB 14.8 d/dL (13.0-17.0); MCHC 33.1 d/dL (32.0-37.0); MCV 93.5 FL (80.0-97.0); Mean Platelet Volume 9.2 FL (9.5-12.2); NRBC Per 100 WBC 0 X 10*3/uL (0.00-0.01); Platelet Count 383 X 10*3/uL (140-440); RBC 4.78 X 10*6/uL (4.40-5.60); RDW 12.5 % (11.5-14.5); WBC 7.36 X 10*3/uL (4.50-10.00)
== END | disposition home or self-care (01) ==
LOC: LABPAT 09:35
PROVIDERS: ATTEND Internal Medicine Interventional Cardiology
DX: Z01.812 Encounter for preprocedural laboratory examination (principal); I25.2 Old myocardial infarction
CPT/HCPCS: 36415; 80051; 82565; 84520; 85027

== ENCOUNTER 2023-03-22 06:15 | Day surgery (SDC) | payer BC ==
[~2023-03-22 06:15] MED LIST: ALPRAZolam 0.25 MG TAB PO PRN; ALPRAZolam 0.5 MG TAB PO PRN; ASPIRIN 325 MG TAB PO STA; HEPARIN SODIUM,PORCINE (1 ML) 2,500 UNIT in SODIUM CHLORIDE 0.9% 250 ML IRRIGATION PRN; HEPARIN SODIUM,PORCINE 10,000 UNIT in SODIUM CHLORIDE 0.9% 1,000 ML IRRIGATION PRN; NITROGLYCERIN SL TABS 0.4 MG TAB SUBLINGUAL PRN; SODIUM CHLORIDE 0.9% 1,000 ML in EMPTY BAG 1 BAG IV SCH
[2023-03-22] MEDS ORDERED: SODIUM CHLORIDE 0.9% 1,000 ML IV ONE (06:22)
[2023-03-22 06:40] VITALS: RESP 18; TEMP 98.2
[2023-03-22] MEDS ORDERED: MIDAZOLAM 2 MG/2 ML VIAL IVP ONE ×2 (07:42)
[2023-03-22] MEDS ORDERED: LIDOCAINE 1% INJ 10MG/ML (20 ML MDV) SQ ONE (07:44)
[2023-03-22] MEDS ORDERED: HEPARIN SODIUM 1,000 UN/ML (10ML VL) IV ONE (07:58)
[2023-03-22] MEDS ORDERED: HYDROmorphone 0.5 MG/0.5 ML SYRINGE IVP ONE (08:24)
[2023-03-22] MEDS ORDERED: NITROGLYCERIN 1000MCG/10ML SYRINGE INTRACORON ONE (08:25)
[2023-03-22] MEDS ORDERED: TICAGRELOR 90 MG TAB ONE (08:33)
[2023-03-22] MEDS ORDERED: IOPAMIDOL-370 200ML BTL INJ ONE (08:35)
[2023-03-22] MEDS ORDERED: TICAGRELOR 90 MG TAB PO ONE (08:35)
--- NOTE | 2023-03-22 09:19 | CC ---
CARDIAC CATHETERIZATION REPORT PROCEDURES PERFORMED: 1. Coronary angiography to assess patency of left anterior descending and circumflex. 2. Percutaneous transluminal coronary angioplasty and stenting of mid left anterior descending with a drug-eluting stent. 3. Intravascular ultrasound of the right coronary artery. PERFORMED BY: Dr. Ty Herrera. ANESTHESIA: Moderate conscious sedation time was 52 minutes. The patient was administered Versed. Oxygen saturation, hemodynamics, and EKG were monitored closely. CLINICAL INFORMATION: Mr. Yefri Barron is a 52-year-old gentleman with a strong family history of CAD and hypertension, who presented with acute anterior ST-elevation [place] on February 28, underwent stenting of LAD and also of circumflex, which was a non infarct-related vessel. He had a 95% mid circumflex somewhat of a chronic lesion with heavy calcification. He was brought in for the procedure for PCI of this vessel. Risks, benefits, options, and rationale were explained. PROCEDURE NOTE: Under local anesthesia and strict aseptic precautions, a 6-Wolof introducer was placed in the right femoral artery. I used a standard left diagnostic catheter and did selective coronary angiography of the left system and noted that both the LAD as well as circumflex were widely patent with remarkably good flow. I then turned my attention to the right coronary artery. I used a [facility] guide catheter of 4.0 caliber to cannulate the right coronary artery. I used a combination of a 45 degree super cross and a long run-through wire, I crossed the lesion. Wire was kept distally. The guide kept going in deeply. I had to wash the guide very carefully. The patient received 7000 units of heparin and ACT was 301. I pre-dilated the lesion with a 2.0 caliber 12 mm long NC Trek balloon and I then used a 15 mm long 2.5 caliber NC Trek balloon and gave another inflation. Subsequently, I deployed a 3.25 caliber 18 mm long Xience stent at 14 atmospheres. Excellent angiographic result was achieved. The patient had chest pain and also mild inferior ST elevation. I performed intravascular ultrasound and noted that the stent was well apposed and fully expanded. The reference diameter was about 3.15 and in-stent diameter when fully expanded was 3.1. Excellent angiographic result without complication was achieved. The sheath was taken out, and Angio-Seal device used to secure hemostasis. He was sent to the room in stable condition. I expect he will be discharged later on today at 5 o'clock if he remains stable and I will see him in the office in 1 week. Discharge instructions regarding activity, diet, and medications were given. Details were discussed with the patient's . I will see him in the office in 1 week and he will be discharged later on today if he remains stable. WARD / LANN: [id number] /
[2023-03-22] MEDS ORDERED: SODIUM CHLORIDE 0.9% 500 ML 500 ML IV ONE (10:00)
[2023-03-22] MEDS ORDERED: RX INFO: IV CONTRAST WAS GIVEN 1 EACH MISC MISCELLANE PRN (11:22)
[2023-03-22] MEDS ORDERED: MAG HYDROX/AL HYDROX/SIMETH 30 ML CUP PO PRN (11:22)
[2023-03-22 15:54] VITALS: BP 118/72; PULSE 64
== END 2023-03-22 16:23 | disposition home or self-care (01) ==
LOC: CATHCVL 06:15
PROVIDERS: ATTEND Internal Medicine Interventional Cardiology
DX: I25.5 Ischemic cardiomyopathy (principal); I25.2 Old myocardial infarction; I10 Essential (primary) hypertension; Z95.5 Presence of coronary angioplasty implant and graft
CPT/HCPCS: 92978; C9600; C1760; C1887 ×2; C1769 ×3; C1894; C1753; C1874; C1725 ×2; J2250; J2001; J1644; J1170; Q9967; J2305

== ENCOUNTER → 2023-04-16 | Outpatient (CLI) | payer BC | END | disposition home or self-care (01) | LOC: LABWHC1 08:43 | PROVIDERS: ATTEND Internal Medicine Endocrinology, Diabetes & Metabolism | DX: E03.8 Other specified hypothyroidism (principal); R73.03 Prediabetes | CPT/HCPCS: 36415; 83036; 84443 ==

== ENCOUNTER → 2023-07-26 | Outpatient (CLI) | payer BC ==
[2023-07-27 03:19] LABS: T4, Free (Free Thyroxine) 1.86 ng/dL (0.80-1.80)
== END | disposition home or self-care (01) ==
LOC: LABWHC1 15:54
PROVIDERS: ATTEND Internal Medicine Interventional Cardiology
DX: E03.8 Other specified hypothyroidism (principal); R73.03 Prediabetes
CPT/HCPCS: 36415; 83036; 84439; 84443